=== PATIENT | male | born 1950 | race Caucasian/White ===

== ENCOUNTER 2024-01-28 14:47 | Emergency (ER) | payer MEDICARE, SELFPAY ==
[2024-01-28 15:00] VITALS: BP 166/90
[2024-01-28 15:02] VITALS: BMI 23.8
[2024-01-28 15:03] VITALS: BP 166/90
--- NOTE | 2024-01-28 15:31 | ED.GENMED ---
History of Present Illness
<Karen Velazquez PA-C - Last Filed: 01/28/24 23:14>
General
Chief Complaint: Fall
Source: patient
Exam Limitations: none
Time Seen by Provider: 01/28/24 15:30
Nursing documentation reviewed up to this point in time: agreed with
History of Present Illness
History of Present Illness:
Patient is a 73-year-old male presenting to the emergency department via EMS following mechanical fall while taking a walk. Patient states that he was going for a walk in his neighborhood when he tripped and fell due to his 'clunky shoes'. He did
fall forward and strike the front of his scalp on the grass. Patient states that his neighbor saw him fall and called 911. Patient does deny any loss of consciousness. Patient denies any pain to his extremities. Patient specifically denies any
headache, neck pain, nausea/vomiting, visual changes. Patient denies any preceding dizziness, lightheadedness, chest pain, or shortness of breath prior to fall�and is adamant that it was a mechanical fall.
Patient is not on any blood thinners.
Past History
<Karen Velazquez PA-C - Last Filed: 01/28/24 23:14>
Past History
ED Past Medical History: Cancer (colon) and Other (tremors)
ED Past Surgical History: Other (partial colectomy, cataracts)
Social History
Tobacco: Non-smoker
Alcohol: None
Review of Systems
<Karen Velazquez PA-C - Last Filed: 01/28/24 23:14>
Review of Systems
Allergies reviewed?: Yes
All Other Systems: ROS reviewed and negative except as documented in HPI and ROS
Phy Exam
<Karen Velazquez PA-C - Last Filed: 01/28/24 23:14>
Physical Exam
Physical Exam:
GENERAL: No acute distress
HEENT: Mild abrasion to left frontal scalp, extraocular muscles intact, no signs of entrapment, dentition intact, no other obvious trauma
NECK: Arrives in C-spine collar. No midline tenderness, normal range of motion, NEXUS criteria negative, no other obvious trauma
BACK: no midline tenderness, no other obvious trauma
CHEST: no tenderness, no flail segment, no subcutaneous emphysema, no other obvious trauma
LUNGS: clear to auscultation bilaterally
CARDIOVASCULAR: Mildly tachycardic, normal rhythm
ABDOMEN: soft, non-tender, no masses, no other obvious trauma
PELVIS: stable, no obvious injury
EXTREMITIES: Bilateral upper and lower extremities atraumatic and nontender with full range of motion. Moving all extremities, distal pulses intact, no other obvious trauma
NEUROLOGIC: awake, alert x 3, no focal deficits. Resting tremor. Strength 5 out of 5 in upper and lower extremities. Sensation fully intact.
Course
<Karen Velazquez PA-C - Last Filed: 01/28/24 23:14>
Orders/Labs/Results
Orders:
Orders
01/28/24 15:52
CT Cervical Spine W/o Iv Contr Urgent
Comment:
Reason For Exam: unwitnessed fall
01/28/24 15:53
Electrocardiogram (*1) Urgent
Reason for Study: Syncope
CT Head W/o Iv Contrast Urgent
Comment:
Reason For Exam: unwitnessed fall
EKG- Treatment ONCE
01/28/24 16:00
Complete Blood Count/With Diff Urgent
Comprehensive Metabolic Panel Urgent
Abnormal Lab Results
01/28/24
16:00
Absolute Neuts (auto) 6.7 H 10^3/uL
(1.4-6.5)
Absolute Lymphs (auto) 1.0 L 10^3/uL
(1.2-3.4)
Absolute Monos (auto) 0.7 H 10^3/uL
(0.1-0.6)
Neutrophils % 78.5 H %
(42.2-75.2)
Lymphocytes % 11.5 L %
(20.5-51.1)
Potassium 5.2 H mmol/L
(3.5-5.1)
Chloride 97 L mmol/L
(98-107)
Carbon Dioxide 33 H mmol/L
(22-30)
Glucose 205 H mg/dl
(70-99)
01/28/24 16:00
01/28/24 16:00
Vital Signs
Initial and Last Documented VS:
Initial Vital Signs
Pulse Ox
100
01/28/24 14:59
Last Documented Vital Signs
Temp Pulse Resp BP Pulse Ox
99.0 F 92 21 169/88 99
01/28/24 15:03 01/28/24 17:45 01/28/24 17:45 01/28/24 16:00 01/28/24 17:45
<Anant Santizo, DO - Last Filed: 01/28/24 15:57>
Orders/Labs/Results
Orders:
Orders
01/28/24 15:52
CT Cervical Spine W/o Iv Contr Urgent
Comment:
Reason For Exam: unwitnessed fall
01/28/24 15:53
Electrocardiogram (*1) Urgent
Reason for Study: Syncope
CT Head W/o Iv Contrast Urgent
Comment:
Reason For Exam: unwitnessed fall
EKG- Treatment ONCE
01/28/24 16:00
Complete Blood Count/With Diff Urgent
Comprehensive Metabolic Panel Urgent
Abnormal Lab Results
01/28/24
16:00
Absolute Neuts (auto) 6.7 H 10^3/uL
(1.4-6.5)
Absolute Lymphs (auto) 1.0 L 10^3/uL
(1.2-3.4)
Absolute Monos (auto) 0.7 H 10^3/uL
(0.1-0.6)
Neutrophils % 78.5 H %
(42.2-75.2)
Lymphocytes % 11.5 L %
(20.5-51.1)
Potassium 5.2 H mmol/L
(3.5-5.1)
Chloride 97 L mmol/L
(98-107)
Carbon Dioxide 33 H mmol/L
(22-30)
Glucose 205 H mg/dl
(70-99)
01/28/24 16:00
01/28/24 16:00
Vital Signs
Initial and Last Documented VS:
Initial Vital Signs
Pulse Ox
100
01/28/24 14:59
Last Documented Vital Signs
Temp Pulse Resp BP Pulse Ox
99.0 F 92 21 169/88 99
01/28/24 15:03 01/28/24 17:45 01/28/24 17:45 01/28/24 16:00 01/28/24 17:45
<Karen Velazquez PA-C - Last Filed: 01/28/24 23:14>
MDM/Problems Addressed
Differential Diagnosis Includes:
Not limited to: Scalp contusion, concussion, intra cerebral hemorrhage, cervical spine fracture, dehydration, cardiac
MDM/Problems Addressed:
73-year-old male presenting following mechanical fall with associated head strike. Denies preceding dizziness, lightheadedness, chest pain, or shortness of breath. There was no loss of consciousness. patient arrives via EMS in cervical collar. He
is a GCS 15 and he is alert and oriented x 3 to person, place, time. He is mildly tachycardic on arrival although normalized by my assessment. Patient does have mild abrasion to left frontal scalp. No evidence of orbital or facial trauma. No
tenderness of cervical spine. No evidence of extremity injuries. No focal neurologic deficits. Patient does have a resting tremor. Basic labs were initiated. Hyperglycemia noted with a glucose of 205. Patient reports currently working with
primary care to manage hyperglycemia/diabetes. He will follow closely with primary care. No other clinically significant abnormalities on labs. EKG nonischemic with no signs of cardiac arrhythmia. Both CT head and cervical spine were obtained
without any acute abnormalities.
Workup negative for traumatic injuries. Patient adamant that this was a mechanical fall. No evidence on labs/EKG to suggest underlying cause. I do feel that patient is stable for discharge with close return precautions. Advised to stay
well-hydrated and follow closely with primary care for better management of blood sugar/diabetes. Patient discharged in stable condition. Patient seen with attending physician.
Chronic conditions affecting care:
Tremor, diabetes
Acute Exacerbation and/or Progression of Chronic Illness:
Acute hyperglycemia
<Karen Velazquez PA-C - Last Filed: 01/28/24 23:14>
*Radiology
Radiology exam reviewed: preliminary read by ED provider and radiology read reviewed
*Pulse Oximetry
Patient hypoxic: no
*EKG
Interpreted by ED Provider?: Yes
EKG Intrepretation Date: 01/28/24
Interpretation: normal
Comparison EKG: no changes
Heart Rate: 95
Rate: normal
Rhythm: sinus
[place]: normal axis
Interval: normal interval
QRS Pattern: normal QRS
Ischemia: no ischemia
*Rn Hemo Dialysis Interpretation
Rate: tachycardiac
Interpretation: abnormal
Heart Rate: 105
Rhythm: sinus
*Critical Care Note
Total Time (30-74mins, 75-104mins- exclusive of procedures): Not Applicable
ED Attending Note
<Karen Velazquez PA-C - Last Filed: 01/28/24 23:14>
-
Portions of this chart may have been created with voice recognition software.� Occasional wrong word or��sound alike� substitutions may have occurred due to the inherent limitations of voice recognition software.
<Anant Santizo, DO - Last Filed: 01/28/24 15:57>
ED Attending Note
Patient seen and examined by attending physician: Yes
I performed the substantive portion of visit, reviewed & personally made and approve the management plan that is documented in note by myself or PANCHO.: Yes
Discharge Plan
Departure
Patient Disposition: Home (Routine Discharge)
Date of Disposition: 01/28/24
Time of Disposition: 17:39
Patient with high blood pressure during this ER visit?: Yes
Condition: Good
Covid-19: Not Applicable
Discharge Problem:
Fall, Minor head injury
Instructions: Head Injury in Adults (DC), Contusion (DC), Preventing falls in adults, BLOOD PRESSURE
Prescriptions:
No Action
acetaminophen 325 MG tablet
650 mg PO DAILYPRN PRN (Reason: mild pain)
(DME) blood sugar diagnostic [Blood Glucose Test] 1 EACH strip
1 ea MC TID Qty: 100 0RF
Rx Instructions:
ONE TOUCH VERIO
Test before breakfast lunch dinner
E11.65
(DME) pen needle, diabetic 1 EACH needle
1 ea MC HS Qty: 100 0RF
Rx Instructions:
BD PILO pen needles
(DME) lancets 1 EACH misc
1 ea MC TID Qty: 100 0RF
Rx Instructions:
DELICA lancets
E11.65
metformin 500 MG tablet
500 mg PO BID@0800,1700 Qty: 60 0RF
Rx Instructions:
E11.65
dapagliflozin propanediol [Farxiga] 10 MG tablet
10 mg PO DAILY Qty: 30 0RF
Rx Instructions:
E11.65
sulfamethoxazole-trimethoprim 1 TABLET tablet
1 tab PO BID Qty: 10 0RF
sitagliptin phosphate [Januvia] 100 MG tablet
100 mg PO DAILY Qty: 30 0RF
Referrals:
UNKNOWN - PT DOES,NOT KNOW [Family Provider] -
Activity Restrictions/Additional Instructions:
RETURN TO THE EMERGENCY DEPARTMENT WITH SEVERE HEADACHE/NECK PAIN, NAUSEA/VOMITING, VISION CHANGES, PERSISTENT DIZZINESS, CHEST PAIN, SHORTNESS OF BREATH, OR OTHER CONCERNS
-Continue to take all your medication as prescribed. Stay well-hydrated.
-Follow-up with your primary care provider for further evaluation/management of your diabetes to obtain better blood sugar control.
Monitor your symptoms closely and return to the emergency department any acute worsening/new symptoms.
Interventions
Interventions:
*Risk Screen - Suicide Last Done: 01/28/24 15:01
*General Assessment Last Done: 01/28/24 15:00
*Neglect/Abuse Screening Last Done: 01/28/24 15:01
ED- Fall Risk Assessment Last Done: 01/28/24 21:15
*ED COVID-19 Vaccine History Last Done: 01/28/24 14:59
*Nursing Disposition Last Done: 01/28/24 21:15
ED-Musculoskeletal Assessment Last Done: 01/28/24 15:02
ED- Neurological Assessment Last Done: 01/28/24 15:01
ED-Skin Assessment Last Done: 01/28/24 14:59
Discharge Date and Time
Discharge Date/Time: 01/28/24 21:12
Print Language: LEBANESE
[2024-01-28 16:00] VITALS: BP 169/88
[2024-01-28 16:10] LABS: % Basophils 0.8 % (0-2); % Eosinophils 0.9 % (0-6); % Immature Granulocytes 0.3 % (0-0.5); % Lymphocytes 11.5 % (20.5-51.1); % Neutrophils 78.5 % (42.2-75.2); Absolute Basophils 0.1 10^3/uL (0-0.2); Absolute Eosinophils 0.1 10^3/uL (0-0.7); Absolute Monocytes 0.7 10^3/uL (0.1-0.6); Absolute Neutrophils 6.7 10^3/uL (1.4-6.5); Hematocrit 39.7 % (39.0-52.0); Hemoglobin 13.9 g/dL (13.0-18.0); Mean Corpuscular Hgb 29.3 pg (27.0-31.0); Mean Corpuscular Volume 83.6 fL (80.0-94.0); Mean Platelet Volume 9.2 fL (7.4-10.4); Nucleated Red Blood Cells % 0 % (-); Platelet Count 199 10^3/uL (130-400); Red Blood Cell Count 4.75 10^6/uL (4.70-6.10); Red Cell Dist. Width 12.2 % (11.5-14.5); White Blood Cell Count 8.6 10^3/uL (4.8-10.8)
[2024-01-28 16:20] LABS: ALT (SGPT) 17 U/L (0-50); AST (SGOT) 24 U/L (17-59); Albumin 4.3 g/dl (3.5-5.0); Alkaline Phosphatase 99 U/L (38-126); Blood Urea Nitrogen 18 mg/dl (9-20); Calcium 9.9 mg/dl (8.4-10.2); Carbon Dioxide 33 mmol/L (22-30); Chloride 97 mmol/L (98-107); Estimated Creatinine Clearance 78 ml/min; Glucose 205 mg/dl (70-99); Potassium 5.2 mmol/L (3.5-5.1); Sodium 139 mmol/L (135-145); Total Bilirubin 0.4 mg/dl (0.2-1.3); Total Protein 6.9 g/dl (6.3-8.2); eGFR > 60.00
--- NOTE | 2024-01-28 18:30 | CM ---
CM was called to assist with transportation home. CM spoke with patient. He stated that he has no family or other contacts to call for a ride home. CM offered to assist with phone calls. Patient denied.
Patient would be agreeable to wheelchair van cost. CM updated bedside RN and self contained behavior unit teacher.
== END 2024-01-28 21:12 | disposition home or self-care (01) ==
LOC: EMR 14:47
PROVIDERS: Physician Assistant; EMERGENCY PHYSICIAN Emergency Medicine
DX: S09.90XA Unspecified injury of head, initial encounter (principal); W19.XXXA Unspecified fall, initial encounter
CPT/HCPCS: 99284; 70450; 72125; 80053; 85025; 93005